=== PATIENT | male | born 1985 | race Caucasian/White ===

== ENCOUNTER 2016-10-20 00:23 | Emergency (ER) | payer OTHER ==
[~2016-10-20] VITALS: Ht 188 cm; Wt 111.2 kg
[~2016-10-20 00:23] MED LIST: AMOXICILLIN875 MG PO; BACTRIM,SEPT1 TABLET PO; FLEXERIL10 MG PO; IBUPROFEN800 MG PO; KEFLEX500 MG PO; NAPROSYN500 MG PO; PEN-VEE K,VEET500 MG PO; PERCOCET 7.51 TABLET PO; PROAIR HFA8.5 GM IH; TESSALON PERLE100 MG PO; ULTRAM50 MG PO; ZYRTEC10 M3 PO
[2016-10-20] MEDS ORDERED: NAPROXEN500 MG PO (01:12)
[2016-10-20] MEDS ORDERED: SKELAXIN800 MG PO (01:12)
[2016-10-20 01:25] VITALS: BP 144/95
== END 2016-10-20 01:26 | disposition home or self-care (01) ==
LOC: EME 00:23
DX: S39.012A Strain of muscle, fascia and tendon of lower back, initial encounter (principal); X50.9XXA Other and unspecified overexertion or strenuous movements or postures, initial encounter
CPT/HCPCS: 99281; 99283

== ENCOUNTER 2016-10-23 13:18 | Emergency (ER) | payer OTHER ==
[~2016-10-23] VITALS: Ht 185.4 cm; Wt 112.9 kg
[~2016-10-23 13:18] MED LIST changes: +NAPROXEN500 MG PO; +SKELAXIN800 MG PO
[2016-10-23] MEDS ORDERED: PREDNISONE20 MG PO (15:08)
[2016-10-23] MEDS ORDERED: MOTRIN800 MG PO (15:08)
[2016-10-23 15:23] VITALS: BP 140/84
== END 2016-10-23 15:25 | disposition home or self-care (01) ==
LOC: EME 13:18
DX: S39.92XA Unspecified injury of lower back, initial encounter (principal); X50.0XXA Overexertion from strenuous movement or load, initial encounter
CPT/HCPCS: 99281; 99284; J1885; J7512

== ENCOUNTER 2016-10-28 13:40 | Emergency (ER) | payer OTHER ==
[~2016-10-28] VITALS: Ht 188 cm; Wt 112.4 kg
[~2016-10-28 13:40] MED LIST changes: +MOTRIN800 MG PO; +PREDNISONE20 MG PO
[2016-10-28] MEDS ORDERED: FLEXERIL10 MG PO (14:09)
[2016-10-28] MEDS ORDERED: NAPROXEN500 MG PO (14:09)
[2016-10-28] MEDS ORDERED: LIDODERM 5% P1 PATCH TD (14:09)
[2016-10-28 14:29] VITALS: BP 135/95
== END 2016-10-28 14:35 | disposition home or self-care (01) ==
LOC: EME 13:40
DX: S39.012A Strain of muscle, fascia and tendon of lower back, initial encounter (principal); X50.0XXD Overexertion from strenuous movement or load, subsequent encounter
CPT/HCPCS: 99281; 99283

== ENCOUNTER 2016-11-18 06:52 | Emergency (ER) | payer OTHER ==
[~2016-11-18] VITALS: Ht 175.3 cm; Wt 112.1 kg
[~2016-11-18 06:52] MED LIST changes: +LIDODERM 5% P1 PATCH TD
[2016-11-18 06:56] VITALS: BP 141/86
[2016-11-18] MEDS ORDERED: NAPROSYN500 MG PO (08:50)
== END 2016-11-18 09:01 | disposition home or self-care (01) ==
LOC: EME 06:52
DX: S63.501A Unspecified sprain of right wrist, initial encounter (principal); X50.3XXA Overexertion from repetitive movements, initial encounter; Y99.0 Civilian activity done for income or pay
CPT/HCPCS: 73110; 99281; 99284